=== PATIENT | female | born 1995 | race Caucasian/White ===

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

== ENCOUNTER 2018-01-28 19:30 | Emergency (ER) | payer BC ==
[2018-01-28 20:03] VITALS: BP 130/87
[2018-01-28] MEDS ORDERED: Tetan/Diph/Pertus SYR(Tdap)* 0.5 ML SYR(BOOSTRIX) use SYR IM ONE (20:27)
[2018-01-28] MEDS ORDERED: Lidocaine 2% PF * 5 ML VIAL INJ ONE (20:27)
--- NOTE | 2018-01-28 21:52 | UC ---
Laceration HPI - HPI Summary HPI Summary: Pt. is a 22 y.o female who presents to the for a finger laceration that occurred just prior to arrival. Pt. states she was using scissors to poke an additional buckle hole in her sandal when finger was cut. Last tetanus was 10 yrs ago. No past medical hx. Symptoms are mild in severity. Moving finger makes symptoms worse. Rest makes symptoms better. - History Of Current Complaint Chief Complaint: UCLaceration Stated Complaint: LEFT MID FINGER LACERATION Time Seen by Provider: 01/28/18 20:17 Hx Obtained From: Patient Hx Last Menstrual Period: 01/28/18 Pain Intensity: 4 Pain Scale Used: 0-10 Numeric - Allergies/Home Medications Allergies/Adverse Reactions: Allergies Allergy/AdvReac Type Severity Reaction Status Date / Time dust Allergy Congestion Uncoded 01/28/18 20:02 Home Medications: Home Medications NK [No Home Medications Reported] 01/28/18 [History Confirmed 01/28/18] PMH/Surg Hx/FS Hx/Imm Hx Previously Healthy: Yes - Surgical History Surgical History: None - Family History Known Family History: Negative: Cardiac Disease, Hypertension, Renal Disease - Social History Occupation: Student Lives: Dormitory/Roommates Alcohol Use: Weekly Substance Use Type: None Smoking Status (MU): Never Smoked Tobacco - Immunization History Most Recent Tetanus Shot: 2007 Review of Systems Musculoskeletal: Other: - Laceration to left 3rd digit. Is Patient Immunocompromised?: No All Other Systems Reviewed And Are Negative: Yes Physical Exam Triage Information Reviewed: Yes Appearance: Well-Appearing - Pt. sitting on exam table in NAD. Friend present. Vital Signs: Initial Vital Signs Temp 98.5 F 01/28/18 19:49 Pulse 73 01/28/18 19:49 Resp 16 01/28/18 19:49 BP 130/87 01/28/18 19:49 Pulse Ox 100 01/28/18 19:49 Vital Signs Reviewed: Yes Eye Exam: Normal Neck: Positive: Supple Musculoskeletal: Positive: Other: - 2 cm triangle shaped laceration noted to the distal 3rd digit of left hand on the palmar aspect. Tendons are intact. No bony tenderness Neurological Exam: Normal Psychological Exam: Normal Laceration Repair - Laceration Repair 1 Description: Irregular Laceration Size After Repair: Length (cm) - 2 Modified For Repair: No Type Injection: Local Anesthesia Used: 2.0% Lido Cleansing Completed Via Routine Prep: Yes Irrigation With Pressure Irrigation Device: No Closure Material: Sutures - 5 4-0 Closure Method: Single Layer Suture Of: Skin Suture Type: Nylon Laceration Course/Dx - Course/Dx Course Of Treatment: Pt. presenting for minor finger laceration that was repaired as above. Tetanus updated. Suture removal in 7-10 days. Keep wound clean and dry. To return to for redness, swelling or drainage from wound. - Differential Dx - Laceration/Wound Differental Diagnoses: Laceration, Pneumothorax, Tendon Laceration Provider Diagnoses: Finger laceration Discharge - Sign-Out/Discharge Documenting (check all that apply): Discharge/Admit/Transfer - Discharge Plan Condition: Good Disposition: HOME Patient Education Materials: Care For Your Stitches (ED) Referrals: No Primary Care Phys,NOPCP [Primary Care Provider] - Additional Instructions: Suture removal in 7-10 days Keep wound clean and dry Return to for redness, swelling or drainage from wound site - Billing Disposition and Condition Condition: GOOD Disposition: HOME
== END 2018-01-28 21:30 | disposition home or self-care (01) ==
LOC: UCCORT 19:30
DX: S61.213A Laceration without foreign body of left middle finger without damage to nail, initial encounter (principal); W27.2XXA Contact with scissors, initial encounter; Y92.9 Unspecified place or not applicable; Z23 Encounter for immunization
CPT/HCPCS: 12001; 90715; 99211; G0463